=== PATIENT | male | born 2000 ===

== ENCOUNTER 2022-05-18 22:10 | Emergency (ER) | payer SELFPAY ==
[2022-05-18] MEDS ORDERED: Acetaminophen 500 MG TAB ONE (22:22)
[2022-05-18 22:46] LABS: #Lymphocytes 1.8 thou/uL (1.20-3.40); #Monocytes 0.8 thou/uL (0.11-0.59); #Neutrophils 6.8 thou/uL (1.40-6.50); %Basophils 0.2 % (0.0-1.0); %Eosinophils 0.4 % (0.0-10.0); %Lymphocytes 18.6 % (28.0-48.0); %Monocytes 8.5 % (0.0-4.0); %Neutrophils 72.3 % (31.0-61.0); Hemoglobin 15.2 g/dL (14.0-18.0); Mean Corpuscular HGB CONC 35.2 g/dL (32.0-36.0); Mean Corpuscular Hemoglobin 34.4 pg (25.0-35.0); Mean Corpuscular Volume 97.6 fL (78.0-98.0); Mean Platelet Volume 6.8 fL (7.4-10.4); Platelet Count 201 thou/uL (130-400); RBC Distribution Width 11.4 % (11.5-14.5); Red Blood Cell (RBC) Count 4.41 mill/uL (4.00-5.20); White Blood Cell (WBC) Count 9.5 thou/uL (4.8-10.8)
[2022-05-18 23:07] LABS: ALT (SGPT) 39 U/L (8-55); AST (SGOT) 28 U/L (5-34); Albumin 4.6 g/dL (3.5-5.0); Alkaline Phosphatase 66 U/L (50-130); Anion Gap 14 mmol/L (10-20); BUN (Urea Nitrogen) 15 mg/dL (8.9-20.6); CK (CPK) 432 U/L (30-200); Calc. Creatinine Clearance 0 mL/min (70-130); Calcium 9.3 mg/dL (7.8-10.44); Carbon Dioxide 25 mmol/L (22-29); Chloride 102 mmol/L (98-107); Estimated GFR 101; Globulin 2.9 g/dL (2.4-3.5); Glucose 98 mg/dL (70-105); Potassium 3.5 mmol/L (3.5-5.1); Protein, Total 7.5 g/dL (6.0-8.3); Sodium 137 mmol/L (136-145)
== END 2022-05-18 23:46 | disposition home or self-care (01) ==
LOC: ERS 22:10
DX: T62.8X1A Toxic effect of other specified noxious substances eaten as food, accidental (unintentional), initial encounter (principal); E86.0 Dehydration; F17.290 Nicotine dependence, other tobacco product, uncomplicated
CPT/HCPCS: 80053; 82550; 85025; 93005; 96360